=== PATIENT | female | born 1995 | race African-American/Black ===

== ENCOUNTER 2021-04-10 17:12 | Emergency (ER) | payer BC ==
[~2021-04-10] VITALS: Ht 165.1 cm; Wt 60.3 kg
[2021-04-10] MEDS ORDERED: BUPRENORPHINE HCL 2 MG TAB.SUBL SL ONE (18:30)
[2021-04-10] MEDS ORDERED: KETOROLAC TROMETHAMINE 30 MG INJ IVP ONE (18:45)
[2021-04-10] MEDS ORDERED: IV NS 1000 ML 1,000 ML IV ONE (18:45)
[2021-04-10] MEDS ORDERED: diphenhydrAMINE 50 MG/1 ML VIAL IV ONE (18:45)
[2021-04-10] MEDS ORDERED: METOCLOPRAMIDE HCL 10 MG/2 ML VIAL IV ONE (18:45)
[2021-04-10] MEDS ORDERED: METOCLOPRAMIDE HCL 10 MG/2 ML VIAL ONE (19:01)
[2021-04-10] MEDS ORDERED: diphenhydrAMINE 50 MG/1 ML VIAL ONE (19:01)
[2021-04-10] MEDS ORDERED: KETOROLAC TROMETHAMINE 30 MG INJ ONE (19:01)
--- NOTE | 2021-04-10 20:01 | NUR ---
IV removed. Catheter intact and site benign. Pressure and 4x4 gauze applied to site. No bleeding noted.
[2021-04-10] MEDS ORDERED: PROC10TA29 PO (20:03)
[2021-04-10] MEDS ORDERED: NAPR-1164 PO (20:03)
[2021-04-10] MEDS ORDERED: SUMA100T16 PO (20:03)
--- NOTE | 2021-04-10 20:09 | NUR ---
Patient discharged to home in stable condition. Written and verbal after care instructions given. Patient verbalizes understanding of instructions. Stressed follow up or return to ER for worsening s/s.
[2021-04-10 20:10] VITALS: BP 121/60
== END 2021-04-10 20:13 | disposition home or self-care (01) ==
LOC: ER 17:17
DX: G43.909 Migraine, unspecified, not intractable, without status migrainosus (principal)
CPT/HCPCS: 96361; 96374; 96375; 99284; J1200; J1885; J2765; A4663; J7030